=== PATIENT | female | born 1965 | race Hispanic/Latino ===

== ENCOUNTER → 2017-04-30 | Day surgery (SDC) | payer OTHER ==
--- NOTE | 2017-04-29 19:05 | History & Physical Pre-Op ---
General Information and HPI History of Present Illness: Patient is a 52-year-old 2 para 2 with BRADFORD-3 on colposcopic biopsy of a high-grade Pap smear. She is presenting today for a planned LEEP conization. Allergies/Medications Allergies: Coded Allergies: dapagliflozin (From FARXIGA) (RECURRENT YEAST INFECTIONS 04/29/17) erythromycin base (STOMACH CRAMPS/CONVULSIONS 04/29/17) Home Med list Cholecalciferol (Vitamin D3) (Vitamin D) (Unknown Strength) TABLET (Unknown Dose) PO DAILY SUPPLEMENT (Reported) Fish Oil/Dha/Epa (Fish Oil 1,200 MG Fish Oil) (Unknown Strength) CAPSULE ( Unknown Dose) PO DAILY SUPPLEMENT (Reported) Insulin Degludec (Tresiba Flextouch U-100) 100 UNIT/ML (3 ML) INSULN.PEN 40 UNITS SC QPM DM (Reported) Insulin Lispro (Humalog Kwikpen U-100) 100 UNIT/ML INSULN.PEN 6-9 UNITS SC TIDAC/HS DM (Reported) Liraglutide (Victoza 2-Jose Maria) 0.6 MG/0.1 ML (18 MG/3 ML) PEN.INJCTR 1.2 MG SC QPM DM (Reported) Multiple Vitamin (Multivitamins) 1 EACH TABLET 1 TAB PO DAILY SUPPLEMENT ( Reported) Pravastatin Sodium 10 MG TABLET 1 TAB PO QPM CHOLESTEROL (Reported) Past History Surgical History Pertinent Surgical History: LEEP Review of Systems Review of Systems Constitutional: Reports: no symptoms. EENTM: Reports: no symptoms. Cardiovascular: Reports: no symptoms. Respiratory: Reports: no symptoms. GI: Reports: no symptoms. Genitourinary: Reports: no symptoms. Musculoskeletal: Reports: no symptoms. Skin: Reports: no symptoms. Neurological/Psychological: Reports: no symptoms. Hematologic/Endocrine: Reports: no symptoms. Immunologic/Allergic: Reports: no symptoms. All Other Systems: Reviewed and Negative Exam & Diagnostic Data Last 24 Hrs of Vital Signs/I&O Intake & Output 04/29 1600 04/29 0800 / 0000 Intake Total Output Total Balance Patient 150 lb Weight Physical Exam: HEENT: Normocephalic atraumatic Chest: Her to auscultation bilaterally Cardiovascular: Normal S1, S2 Abdomen: Soft nontender nondistended Pelvic: Deferred to the OR Extremities: No clubbing cyanosis or edema Assessment/Plan Assessment/Plan: BRADFORD III Plan LEEP conization As Ranked By This Provider Problem List: 1. BRADFORD III (cervical intraepithelial neoplasia grade III) with severe dysplasia
[~2017-04-30] VITALS: Ht 152.4 cm; Wt 68.0 kg
[~2017-04-30] MED LIST: FISH OIL 1,2001 EACH PO; HUMALOG KW100 UNIT/1 SC; MULTIVITAMINS1 EAC9 PO; PRAVASTATIN SOD10 M2 PO; TRESIBA FL100 UNIT/1 SC; VICTOZA 2-0.6 MG/0.1 SC; VITAMIN D1000 UNIT PO
--- NOTE | 2017-05-05 17:37 | Operative Report ---
Operative/Inv Procedure Report Surgery Date: 04/30/17 Name of Procedure: LEEP conization Pre-Operative Diagnosis: BRADFORD-3 Post-Operative Diagnosis: Same Estimated Blood Loss: less than 50ml Surgeon/Manager Utilization Review: Sushant Villalta MD Anesthesia: laryngeal mask airway Operative/Procedure Note Note: The patient was brought to the operating room placed on the OR table in the dorsal supine position. She underwent anesthesia was successfully intubated with an LMA. She was repositioned into modified dorsal lithotomy and prepped and draped in usual sterile fashion. A weighted speculum was inserted into the vagina with the help of a [place] retractors 2 [id number] sutures of 0 Polysorb were placed at 3 and 9:00 and tagged. The weighted speculum was removed and replaced with a bivalve a rubber coated speculum. As was injected with 1% lidocaine to have cc in each quadrant. A LEEP was performed from the 12 :00 to the 6 o'clock position. And then a deeper cervical cone was placed beyond this at 12:00 suture was placed and silk. An ECC or endocervical curettage was performed revealing a small amount of tissue as well. The base of the defect was then coagulated with the ball electrode. Stay sutures were released Zo hemostatic powder was placed on the suture line and the isthmus removed patient was sent to recovery in good condition after awakening from surgery. All needle, sponge, and is recalcitrant correct at the end of procedure 2.
== END ==
LOC: STS 04:01
DX: N87.0 Mild cervical dysplasia (principal); N84.1 Polyp of cervix uteri; E11.9 Type 2 diabetes mellitus without complications; Z79.4 Long term (current) use of insulin
CPT/HCPCS: 88305; 88307; J0131; J2250